=== PATIENT | male | born 1960 | race African-American/Black ===

== ENCOUNTER 2017-01-24 09:11 | Emergency (ER) | payer MEDICAID ==
[~2017-01-24] VITALS: Ht 188 cm; Wt 114.0 kg
[2017-01-24] MEDS ORDERED: KETOROLAC 60MG/2ML VIAL IM ONE (10:15)
[2017-01-24 10:28] VITALS: BP 168/97
== END 2017-01-24 11:09 | disposition home or self-care (01) ==
LOC: ER 10:20
DX: M54.5 Low back pain (principal); I10 Essential (primary) hypertension; F17.210 Nicotine dependence, cigarettes, uncomplicated
CPT/HCPCS: 96372; 99283; J1885; Z7610

== ENCOUNTER 2018-01-27 19:31 | Emergency (ER) | payer MEDICAID | END 2018-01-27 20:03 | disposition left against medical advice (07) | LOC: ER 19:36 | DX: Z53.21 Procedure and treatment not carried out due to patient leaving prior to being seen by health care provider (principal) ==

== ENCOUNTER 2020-01-04 12:34 | Emergency (ER) | payer MEDICAID ==
[~2020-01-04] VITALS: Ht 177.8 cm; Wt 73.0 kg
[~2020-01-04 12:34] MED LIST: AMLO10TA80 PO; HYDR12.54 PO; PANT40TA4 PO
[2020-01-04 14:40] VITALS: BP 135/72
== END 2020-01-04 15:07 | disposition home or self-care (01) ==
LOC: ER 12:34
DX: R05 Cough (principal); I10 Essential (primary) hypertension
CPT/HCPCS: 71045; 99283

== ENCOUNTER 2020-07-09 13:48 | Emergency (ER) | payer MEDICAID ==
[~2020-07-09] VITALS: Ht 188 cm; Wt 100.1 kg
[2020-07-09 13:56] VITALS: BP 170/90
[2020-07-09] MEDS ORDERED: BACITRACIN ZINC OINT UDPKT TOP ONE (14:15)
== END 2020-07-09 14:50 | disposition home or self-care (01) ==
LOC: ER 14:00
DX: L02.416 Cutaneous abscess of left lower limb (principal); K21.9 Gastro-esophageal reflux disease without esophagitis; I10 Essential (primary) hypertension
CPT/HCPCS: 99283